=== PATIENT | female | born 1950 | race Caucasian/White ===

== ENCOUNTER 2016-12-11 22:06 | Emergency (ER) | payer MEDICARE, OTHER ==
[~2016-12-11] VITALS: Ht 152.4 cm; Wt 56.8 kg
[2016-12-12] MEDS ORDERED: FLONASE AL50 MCG/ACT (00:04)
[2016-12-12 00:45] VITALS: BP 161/77
[2016-12-12] MEDS ORDERED: FENTANYL50 MCG/HR TD (01:00)
[2016-12-12] MEDS ORDERED: OXYCODONE HCL15 MG PO (01:02)
[2016-12-12] MEDS ORDERED: ATIVAN1 MG PO (01:03)
[2016-12-12] MEDS ORDERED: LEVOTHYROXIN50 MCG PO (01:03)
[2016-12-12] MEDS ORDERED: LYRICA25 MG PO (01:03)
[2016-12-12] MEDS ORDERED: XYZAL5 MG PO (01:04)
[2016-12-12] MEDS ORDERED: PROMETHAZIN1 PO (01:04)
[2016-12-12] MEDS ORDERED: RANITIDINE75 MG/5 M1 PO (01:05)
[2016-12-12] MEDS ORDERED: OXYBUTININ XX (01:05)
[2016-12-12] MEDS ORDERED: PHILLIPS COLON HEALT PO (01:06)
== END 2016-12-12 01:08 | disposition home or self-care (01) ==
LOC: ED 22:06
DX: J30.9 Allergic rhinitis, unspecified (principal); Z85.819 Personal history of malignant neoplasm of unspecified site of lip, oral cavity, and pharynx; Z93.0 Tracheostomy status